=== PATIENT | male | born 1935 | race Caucasian/White ===

== ENCOUNTER → 2016-07-03 | Outpatient (CLI) | payer OTHER ==
[~2016-07-03] MED LIST: IOPAMIDOL (ISOVUE-300) 100 ML BTL IV ONE
[2016-07-03 13:38] LABS: CREATININE 0.8 mg/dL (0.7-1.3); GLOMERULAR FILTRATION RATE > 60
--- NOTE | 2016-07-03 16:01 | CT ---
"CT Chest With Contrast 1347 hours Indication: Lung cancer diagnosed 13 years ago right upper lobe (C 34.11). Technique: Spiral images were obtained through the chest with the uneventful intravenous administr ation of 90 mL of Isovue-300. Images were reconstructed and reviewed in multiple planes. Dose reduc tion techniques were utilized. Comparison: Prior CT chest study from July 31, 2011. Findings: Lung and large airways: There has been interval development of a spiculated solid mass posterior aspe ct left upper lobe adjacent to the major fissure on series 3 image 108 measuring 20 x 15 mm. There is a stable nodule associated with some scarring right lung base laterally on image 175 measuring 7 x 4 mm. No significant new pulmonary nodules are seen elsewhere within the lung parenchyma there are mckenna e emphysematous changes suspected involving the upper lobes. Minimal focal reticulonodular thickening is seen in the inferior aspect left upper lobe anteriorly could be from previous radiation therapy. Bronchi: No significant bronchial wall thickening Pleura: Normal. Vessels: Atherosclerotic calcification is noted of the thoracic aorta at the aortic arch level with s ome scattered areas of partially calcified plaque involving the descending thoracic aorta. Calcified plaque is also seen involving the right and left coronary arteries.. Heart and pericardium: Normal. Mediastinum and thuy: Increased number of small nodes are present within the prevascular space as wel l as AP window and precarinal region that were present previously and are stable. There is also a 21 mm node right perihilar location that is stable. Small 1 cm nodes are also seen about the left hilum were also present previously and appear to be stable. Chest wall and lower neck: Normal. Limited upper abdomen: There is stable peripherally enhancing hemangioma right lobe liver posterior s egment measuring about 5.3 x 6.1 cm transversely. There is mild increase in size of hypodense lesion upper pole right kidney that now measures 18 x 18 mm (previously 8 mm) nodularity of the left adrenal gland is stable measuring about 17 x 15 mm.. Skeletal system: Vertebral body heights are well-maintained. There are no lytic or sclerotic osseous lesions. Impression: 1. Development of a spiculated solid mass posterior aspect left upper lobe adjacent to the major fiss ures suspicious for recurrent bronchogenic carcinoma. 2. Emphysematous changes suspected involving the upper lobes. 3. Increased number of small lymph nodes about the mediastinum and thuy bilaterally that are stable w hen compared to the prior study. 4. Stable hemangioma right lobe liver posterior segment. 5. Increase in size of hypodense lesion upper pole right kidney. This is nonspecific. Continued follo w-up suggested. 6. Stable nodularity left adrenal gland probably representing lipid poor adrenal adenoma. A Follow-Up Required test result has been communicated via the [place] | Critical Result syst em on 07/03/2016 15:59, Message ID [id number]."
== END ==
LOC: FIMAGING 12:51
PROVIDERS: ATTEND Surgery
DX: R91.8 Other nonspecific abnormal finding of lung field (principal); C34.11 Malignant neoplasm of upper lobe, right bronchus or lung
CPT/HCPCS: 71260; Q9967

== ENCOUNTER 2016-08-05 06:12 | Inpatient (IN) | payer OTHER ==
[~2016-08-05 06:12] MED LIST changes: -IOPAMIDOL (ISOVUE-300) 100 ML BTL IV ONE; +ceFAZolin 2 GM/DEXTROSE 100 ML IV ONE
[2016-08-05] MEDS ORDERED: LIDOCAINE 1% 5 ML SDV ONE (06:22)
--- NOTE | 2016-08-05 06:49 | CPEKG ---
Heart Rate: 86 RR Interval: 698 P-R Interval: 216 QRSD Interval: 164 QT Interval: 416 QTC Interval: 498 P [place]: 50 QRS [place]: 129 T Wave [place]: -10 EKG Severity - ABNORMAL ECG - EKG Impression: SINUS RHYTHM EKG Impression: VENTRICULAR TRIGEMINY EKG Impression: RBBB AND LPFB Electronically Signed By: Joanne Kraus 05-Aug-2016 09:02:35
[2016-08-05] MEDS ORDERED: BUPIVACAINE 0.5% 30 ML SDV ONE (07:11)
[2016-08-05 07:23] LABS: % IMMATURE GRANULYOCYTES 0.3 % (0.0-1.1); ABSOLUTE IMMATURE GRANULOCYTES 0.04 10^3/uL (0.00-0.10); ADD DIFF? NO; ADD MORPH? NO; ADD SCAN? NO; ATYPICAL LYMPHOCYTE FLAG 0 (0-99); FRAGMENT RBC FLAG 0 (0-99); HEMOGLOBIN 16.2 g/dL (13.7-17.5); LEFT SHIFT FLG 0 (0-99); LIPEMIA HEMOLYSIS FLAG 90 (0-99); MEAN CELL HEMOGLOBIN 28.6 pg (27.9-34.1); MEAN CELL HEMOGLOBIN CONCENTR. 34.5 g/dL (32.4-36.7); MEAN CELL VOLUME 82.9 fL (81.5-99.8); MEAN PLATELET VOLUME 9.1 fL (8.7-11.7); PLATELET CLUMPS FLAG 0 (0-99); PLATELET COUNT 278 10^3/uL (150-400); RED BLOOD CELL COUNT 5.67 10^6/uL (4.40-6.38); RED CELL DISTRIBUTION WIDTH 14.1 % (11.5-15.2)
[2016-08-05] MEDS ORDERED: LIDOCAINE 1% 5 ML SDV ID PRN (07:30)
[2016-08-05] MEDS ORDERED: LR 1,000 ML IV ONE (07:30)
[2016-08-05 07:36] LABS: ANION GAP 15 mEq/L (8-16); CALCIUM 10.3 mg/dL (8.5-10.4); CARBON DIOXIDE 23 mEq/l (22-31); CHLORIDE 100 mEq/L (97-110); CREATININE 1.1 mg/dL (0.7-1.3); GLOMERULAR FILTRATION RATE > 60; GLUCOSE 143 mg/dL (70-100); POTASSIUM 3.6 mEq/L (3.5-5.2); SODIUM 138 mEq/L (134-144)
[2016-08-05] MEDS ORDERED: NON-FORMULARY NEW DRUG (Losartan Potassium [Cozaar] 100 MG) PO SCH (09:00)
[2016-08-05] MEDS ORDERED: [UNRECOGNIZED DRUG - OTHER] PO SCH (09:00)
[2016-08-05] MEDS ORDERED: NON-FORMULARY NEW DRUG (Atenolol/Chlorthalidone [Atenolol-Chlorthalidone 50-25] 1 EACH) PO SCH (09:00)
--- NOTE | 2016-08-05 10:10 | GCON ---
CARDIOLOGY CONSULTATION DATE OF CONSULTATION: 08/05/2016 REFERRING PHYSICIAN: Cory Hardin MD INDICATIONS: Abnormal EKG, preoperative evaluation. HISTORY OF PRESENT ILLNESS: The patient is a pleasant 81-year-old male seen in the [facility] area prior to planned lung surgery. He has no known cardiovascular disease. His cardiac risk factor profile in addition to his age and gender includes an extensive and heavy tobacco use history , longstanding hypertension, and a history of untreated hyperlipidemia. He is currently awaiting irma ng surgery. Apparently, 13 years ago he had a right upper lobectomy for lung cancer. Apparently, shawn honeycutt has a new spiculated mass. There are plans for him to undergo pulmonary surgery in order to remov e this mass. He states that he generally feels well, although he is nearly completely sedentary. Shawn honeycutt does not participate in any exercise program. The most strenuous activity he does is to go for a casual walk with his dog. He does not climb stairs. He denies symptoms of dyspnea or chest discomf ort. As an outpatient, he takes Cozaar and atenolol/chlorthalidone for blood pressure control. Thi s morning, he took his Cozaar without the atenolol. 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 This ECG was similar to a previous ECG available for review; however, the d ate on that ECG is illegible. His blood pressure today was in excess of 200 mmHg. PAST MEDICAL HISTORY: 1. Lung cancer, as described above. 2. Hypertension. 3. Hyperlipidemia. 4. Macular degeneration. 5. Possible peripheral neuropathy. 6. Bilateral hearing loss. 7. Chronic sinusitis. MEDICATIONS: 1. Cozaar 100 mg daily. 2. Atenolol/chlorthalidone 50/25 mg daily. 3. Ocuvite. FAMILY HISTORY: Negative. SOCIAL HISTORY: He used to be a heavy smoker, in excess of 2 packs a day for a very long time. He quit 13 years ago when he was diagnosed with lung cancer. 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 He is currently to his 2nd of 39 years. He is retired. He has 1 child. 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 He is a [employer]. As stated above, he d oes not exercise, does have a small dog that he walks although does not do any stairs. SURGICAL HISTORY: Previous right upper lobe resection, tonsillectomy, adenoidectomy, left cataract surgery. ALLERGIES: None. PHYSICAL EXAMINATION: VITAL SIGNS: His blood pressure was noted to be most recently 189/90. His h eart rate is in the 60s and 70s. He is afebrile. He has no oxygen required. GENERAL: He is a hea lthy white male in no acute distress. HEENT: No jugular venous distention, adenopathy, thyromegaly , or bruits. RESPIRATORY: He speaks in full sentences, using no accessory muscles. On auscultatio n, he has clear lung solorio bilaterally. CARDIAC: Precordial inspection is unremarkable. PMI is n ondisplaced. On auscultation, he has a regular rate and rhythm. There is a soft 4th heart sound wi th a soft 1/6 systolic ejection murmur at the left sternal border. ABDOMEN: Soft and nontender wit h no masses. I do not appreciate his aorta. EXTREMITIES: Without edema and are warm and well perf used. He has 2+ dorsal pedal pulses. NEUROLOGIC: He is alert and oriented with a pleasant mood an d affect. He moves all 4 limbs spontaneously. DATA REVIEWED: Electrocardiogram is as described above. White blood cell count 11.7, hematocrit 47, platelet count 278,000. Sodium 138, potassium 3.6, chlo ride 100, BUN 27, creatinine 1.1, glucose 143, calcium 10.3. IMPRESSION: The patient is a pleasant 81-year-old male with no known cardiovascular disease, howeve r, a fairly significant cardiac risk factor profile. He is seen prior to planned lung resection for what appears to be recurrent lung cancer. Today, he is markedly hypertensive. His blood pressure is elevated on the heels of not taking his morning atenolol/chlorthalidone. 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 His functional capacity is much less than 4 METS on a daily basis. The planned surgical procedure does not carry a low risk. RECOMMENDATIONS: 1. I think his surgery should be canceled for today. 2. I did ask him to take his atenolol/chlorthalidone. He has already taken his Cozaar. 3. I would recommend that he have an echocardiogram and stress myocardial perfusion imaging study p rior to any planned surgical procedure. 4. This plan was discussed with him and his . They are in agreement. 5. Dr. Hardin has recommended the patient be admitted to the hospital. We will plan to proceed with these tests during this hospitalization. /[id number]/MODL
[2016-08-05] MEDS ORDERED: REGADENOSON 0.4 MG/5 ML SYR IVP ONE (13:02)
--- NOTE | 2016-08-05 14:51 | CPR ---
DATE OF PROCEDURE: 08/05/2016 PROCEDURE: Lexiscan nuclear stress test. REASONS FOR TEST: 1. Abnormal EKG. 2. Hypertension. FINDINGS: Resting EKG shows a sinus rhythm with a heart rate of 69, first-degree AV block, right bu ndle branch block. Resting blood pressure 160/82, oxygen saturation 94%. LEXISCAN PORTION: Lexiscan was injected rapidly, followed by saline flush. Cardiolite was then inj ected, followed by saline flush, both by protocol. Lexiscan injected at 1:35 p.m. Test peak blood pressure 172/80, peak heart rate 83, oxygen saturation 96%. He did become flushed and short of gabbie th with the injection. RECOVERY: Caffeine was given with good response of resolving shortness of breath and flushing. Res ting blood pressure 174/80, resting heart rate 75, oxygen saturation 96%. There were no EKG changes throughout the testing process. At this time, he currently is stable for nuclear imaging. /[id number]/MODL
--- NOTE | 2016-08-05 15:25 | ECHO ---
[id number] + + [address] : : [place] [address] : : [phone] + + Adult Echocardiographic Report + ---------+ :Name: STEFANO CRUZ LStudy Date: 08/05/2016 10:11 AM : : Hospital Admission Number: [id number] Raadmarleni tinatalie: 207: :: 1935 Gender: Male Height: 72 i n : :Age: 81 yrs Race: WH Weight: 193 lb : :Reason For Study: Eval LV Fx : : BSA: 2.1 met ers2 : :History: Abnormal EKG : + ---------+ MMode/2D Measurements \T\ Calculations IVSd: 0.95 cm LVIDd: 4.5 cm FS: 42.4 % Ao root diam: 3.3 cm LVPWd: 0.97 cm LVIDs: 2.6 cm EDV(Teich): 94.3 ml ACS: 1.7 cm ESV(Teich): 25.0 ml EF(Teich): 73.5 % Normal Measurement Values: + + :LVIDd (3.5-5.7cm) IVSd (0.6-1.1cm) LVPWd (0.6-1.1cm) Aortic Root (2.0-3.7cm)Left Atrium (1.5-4.0cm): :LV Vol(d) (76-115ml) LV Vol(s) (29-48ml) Ejec Fraction (50-65%)PV Ej (0.6- 1.2m/s) TV Ej (0.4-1.0m/s) : :MV E Ej (0.8-1.0m/s)MV A Ej (0.3-1.0m/s)LVOT Ej (0.7-1.2m/s) Asc Ao Ej ( 0.9-1.8m/s) : + + Doppler Measurements \T\ Calculations MV E max ej: Ao V2 max: LV V1 max: PA V2 max: 45.4 cm/sec 149.3 cm/sec 100.7 cm/sec 97.7 cm/sec MV A max ej: Ao max P.9 mmHgLV V1 max PG: PA max P.2 cm/sec 4.1 mmHg 3.8 mmHg MV E/A: 0.47 Left Ventricle The left ventricle is normal in size. There is normal left ventricular wall thickness. The left ventricular ejection fraction is normal. Ejection Fraction = 73%. There is Doppler evidence for diastolic dysfunction. RBBB. Right Ventricle The right ventricle is normal in size and function. Atria The left atrial size is normal. Right atrial size is normal. Mitral Valve There is mild mitral annular calcification. There is no evidence of mitral valve prolapse. There is no mitral valve stenosis. There is trace mitral regurgitation. Tricuspid Valve The tricuspid valve is normal in structure and function. Aortic Valve Mild Aortic Valve Calcification. The aortic valve is trileaflet. There is no aortic stenosis. There is no aortic insufficiency. Pulmonic Valve The pulmonic valve is normal in structure and function. There is no pulmonic valvular regurgitation. Great Vessels The aortic root is normal size. Pericardium/Pleural There is no pericardial effusion. Conclusion A complete two-dimensional transthoracic echocardiogram was performed (2D, M-mode, Doppler and color flow Doppler). The left ventricular ejection fraction is normal. Ejection Fraction = 73%. There is Doppler evidence for diastolic dysfunction. The right ventricle is normal in size and function. There is mild mitral annular calcification. There is trace mitral regurgitation. The tricuspid valve is normal in structure and function. Mild Aortic Valve Calcification The aortic valve is trileaflet. There is no pericardial effusion. Final Reading Physician: Lima Chung signed on 08/05/2016 03:24 PM Ordering Physician: Tanvir Haywood Performed By: Manuel Brower, REYCS
[2016-08-05] MEDS ORDERED: hydrALAZINE 20 MG/ML VIAL IVP PRN (16:42)
[2016-08-05] MEDS: CARVEDILOL 25 MG TAB PO SCH (17:29)
--- NOTE | 2016-08-05 20:11 | SOAPPROG ---
[facility] Progress Note Assessment/Plan: Assessment: CARDIAC W/U OK/ PROBABLY CAN PROCEED WITH LUNG RESECTION WHEN BP BETTER CONTROLLED Plan: LEFT UPPER LOBECTOMY 08/05/16 20:09 Objective: Vital Signs Temp Pulse Resp BP Pulse Ox 36.6 C 61 18 179/90 H 95 08/05/16 20:00 08/05/16 20:00 08/05/16 20:00 08/05/16 20:00 08/05/16 20:00 Laboratory Results 08/05/16 07:15 08/05/16 07:15 08/04/16 08/05/16 08/06/16 05:59 05:59 05:59 Intake Total 650 Output Total 250 Balance 400 ICD10 Worksheet Patient Problems: Problems Problem Status Onset Lung cancer, lingula Acute - ICD10 Problem Qualifiers (1) Lung cancer, lingula
[2016-08-06] MEDS: LOSARTAN POTASSIUM 50 MG TAB PO SCH (08:04)
[2016-08-06] MEDS: PRESERVISION AREDS2 FORMULA EYE VIT 1 EACH PO SCH (08:04)
[2016-08-06] MEDS: CARVEDILOL 25 MG TAB PO SCH ×2 (08:05→17:58)
--- NOTE | 2016-08-06 08:55 | CPEKG ---
Heart Rate: 84 RR Interval: 714 P-R Interval: 220 QRSD Interval: 160 QT Interval: 424 QTC Interval: 502 P [place]: 77 QRS [place]: 123 T Wave [place]: -1 EKG Severity - ABNORMAL ECG - EKG Impression: SINUS RHYTHM EKG Impression: VENTRICULAR PREMATURE COMPLEX EKG Impression: FIRST DEGREE AV BLOCK EKG Impression: RIGHT BUNDLE BRANCH BLOCK Electronically Signed By: Joanne Kraus 06-Aug-2016 09:17:14
[2016-08-06] MEDS ORDERED: ATENOLOL 50 MG TAB PO SCH (09:00)
[2016-08-06] MEDS: CHLORTHALIDONE 25 MG TAB PO SCH ×2 (10:45→11:24)
--- NOTE | 2016-08-06 13:03 | SOAPPROG ---
[facility] Progress Note Assessment/Plan: Assessment: Of his workup thus far indicates that he has a structurally normal heart with evidence of underlying coronary disease as manifested by a fixed inferolateral perfusion defect. He is not experiencing any angina or heart failure. 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 He has significant hypertension which, at the present time, is not optimally treated. Overall, I think his current cardiovascular risk is such that he can safely be taken to the operating room for his planned partial pneumonectomy. I did ask them to give him his hydralazine this morning to help with his blood pressure. I have also written for him to be started on amlodipine. Postoperatively I would like him to start low-dose aspirin. We can consider other treatment options as an outpatient. 08/06/16 13:01 Subjective: Today, he states that he is feeling well. He notes he is a little bit fatigued and hungry from being NPO. He has not experienced any chest discomfort, chest pain, chest pressure heaviness or dyspnea. He is currently NPO with plans for surgery later today. Objective: Vital Signs Temp Pulse Resp BP Pulse Ox 36.9 C 82 16 154/77 H 95 08/06/16 11:59 08/06/16 11:59 08/06/16 11:59 08/06/16 11:59 08/06/16 11:59 Laboratory Results 08/05/16 07:15 08/05/16 07:15 08/05/16 08/06/16 08/07/16 05:59 05:59 05:59 Intake Total 1050 Output Total 250 Balance 800 Physical Exam - Physical Exam General Appearance: WD/WN, no apparent distress Neck: non-tender Respiratory: lungs clear Cardiac/Chest: regular rate, rhythm Peripheral Pulses: 2+: carotid (R), carotid (L) Neuro/Psych: no motor/sensory deficits, alert, normal mood/affect, oriented x 3 ICD10 Worksheet Patient Problems: Problems Problem Status Onset Lung cancer, lingula Acute
[2016-08-07] MEDS ORDERED: HYDROmorphONE/DILAUDID 1 MG/ML SYR IVP PRN (04:35)
[2016-08-07] MEDS ORDERED: ONDANSETRON 4 MG/2 ML VIAL IVP PRN (04:35)
[2016-08-07 05:14] LABS: % IMMATURE GRANULYOCYTES 0.3 % (0.0-1.1); ABSOLUTE IMMATURE GRANULOCYTES 0.05 10^3/uL (0.00-0.10); ADD DIFF? NO; ADD MORPH? NO; ADD SCAN? NO; ATYPICAL LYMPHOCYTE FLAG 10 (0-99); FRAGMENT RBC FLAG 0 (0-99); HEMATOCRIT 42.7 % (40.0-51.0); HEMOGLOBIN 14.7 g/dL (13.7-17.5); LEFT SHIFT FLG 0 (0-99); LIPEMIA HEMOLYSIS FLAG 90 (0-99); MEAN CELL HEMOGLOBIN 28.8 pg (27.9-34.1); MEAN CELL HEMOGLOBIN CONCENTR. 34.4 g/dL (32.4-36.7); MEAN CELL VOLUME 83.7 fL (81.5-99.8); MEAN PLATELET VOLUME 9.7 fL (8.7-11.7); PLATELET CLUMPS FLAG 0 (0-99); PLATELET COUNT 290 10^3/uL (150-400); RED CELL DISTRIBUTION WIDTH 14.2 % (11.5-15.2)
[2016-08-07 05:27] LABS: ANION GAP 12 mEq/L (8-16); CALCIUM 9.7 mg/dL (8.5-10.4); CARBON DIOXIDE 21 mEq/l (22-31); CHLORIDE 95 mEq/L (97-110); CREATININE 1.1 mg/dL (0.7-1.3); GLOMERULAR FILTRATION RATE > 60; GLUCOSE 104 mg/dL (70-100); POTASSIUM 3.8 mEq/L (3.5-5.2); SODIUM 128 mEq/L (134-144)
[2016-08-07] MEDS ORDERED: BUPIVACAINE/EPI 0.5% 30 ML SDV ONE ×2 (07:39→15:36)
[2016-08-07] MEDS ORDERED: THROMBIN(HUM PLAS)/FIBRINOG/CA 5 ML VIAL TP ONE (07:40)
[2016-08-07] MEDS ORDERED: BUPIVACAINE 0.5% 30 ML SDV ONE ×2 (07:40→15:37)
[2016-08-07] MEDS ORDERED: CEFOXITIN SODIUM IV ONE (08:30)
[2016-08-07] MEDS ORDERED: D5W IV ONE (08:30)
[2016-08-07] MEDS: LOSARTAN POTASSIUM 50 MG TAB PO SCH (08:46)
[2016-08-07] MEDS: CARVEDILOL 25 MG TAB PO SCH ×2 (08:49→21:41)
[2016-08-07] MEDS: PRESERVISION AREDS2 FORMULA EYE VIT 1 EACH PO SCH (08:49)
[2016-08-07 09:26] LABS: ANION GAP 15 mEq/L (8-16); CARBON DIOXIDE 17 mEq/l (22-31); CHLORIDE 97 mEq/L (97-110); GLOMERULAR FILTRATION RATE > 60; GLUCOSE 142 mg/dL (70-100); POTASSIUM 3.9 mEq/L (3.5-5.2); SODIUM 129 mEq/L (134-144)
[2016-08-07] MEDS: CHLORTHALIDONE 25 MG TAB PO SCH (10:52)
--- NOTE | 2016-08-07 12:01 | SOAPPROG ---
[facility] Progress Note Assessment/Plan: Assessment: 08/06/16 His workup thus far indicates that he has a structurally normal heart with evidence of underlying coronary disease as manifested by a fixed inferolateral perfusion defect. He is not experiencing any angina or heart failure. 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 He has significant hypertension which, at the present time, is not optimally treated. Overall, I think his current cardiovascular risk is such that he can safely be taken to the operating room for his planned partial pneumonectomy. I did ask them to give him his hydralazine this morning to help with his blood pressure. I have also written for him to be started on amlodipine. Postoperatively I would like him to start low-dose aspirin. We can consider other treatment options as an outpatient. 08/07/16 12:00 1. Probable coronary artery disease. His stress test indicates a fixed inferolateral defect. He has no symptoms of angina. There was no ischemia noted. 2. Hypertension. Blood pressure has improved following advancing his medical therapy. 3. Abnormal ECG. He has a right bundle branch block, left posterior fascicular block and first-degree AV block. 4. Frequent PVCs. 5. Hyponatremia. He remains stable. His blood pressure has improved. I am a little concerned about his low sodium. I wonder if this might be related to prolonged periods of NPO status or the cessation of his chlorthalidone. I think it is likely that he will equilibrate following his surgical procedure. At the present time , I think that he can have his surgery safely with respect to his cardiovascular status. Will need to carefully follow his electrolytes postoperatively. 08/07/16 12:02 Subjective: His surgical procedure was canceled yesterday. He remains hemodynamically stable. Blood pressure has improved. He complains of mild nausea and had emesis this morning. He is not experiencing any chest or abdominal discomfort. Objective: Vital Signs Temp Pulse Resp BP Pulse Ox 36.9 C 81 25 H 136/67 H 90 L 08/07/16 11:47 08/07/16 11:47 08/07/16 11:47 08/07/16 11:47 08/07/16 11:47 Laboratory Results 08/07/16 03:53 08/07/16 09:00 08/06/16 08/07/16 08/08/16 05:59 05:59 05:59 Intake Total 1050 1300 Output Total 250 Balance 800 1300 Physical Exam - Physical Exam General Appearance: WD/WN, no apparent distress Neck: non-tender, full range of motion Respiratory: chest non-tender, lungs clear, normal breath sounds, No respiratory distress, No accessory muscle use Cardiac/Chest: normal peripheral pulses, regular rate, rhythm, No edema, No gallop, No JVD Peripheral Pulses: 2+: carotid (R), carotid (L) Abdomen: non-tender, soft Neuro/Psych: alert, normal mood/affect, oriented x 3 ICD10 Worksheet Patient Problems: Problems Problem Status Onset Lung cancer, lingula Acute
[2016-08-07] MEDS ORDERED: MIDAZOLAM 2 MG/2 ML VIAL ONE (15:27)
[2016-08-07] MEDS ORDERED: fentaNYL 100 MCG/2 ML INJ ONE ×3 (15:31→18:17)
[2016-08-07] MEDS ORDERED: REMIFENTANIL HCL 1 MG VIAL ONE (15:31)
[2016-08-07] MEDS ORDERED: PROPOFOL/EMULSION 500 MG/50 ML BOTTLE IV ONE (15:31)
[2016-08-07] MEDS ORDERED: ROCURONIUM 50 MG/5 ML VIAL ONE (15:35)
[2016-08-07] MEDS ORDERED: ONDANSETRON 4 MG/2 ML VIAL ONE (15:35)
[2016-08-07] MEDS ORDERED: DEXAMETHASONE 4 MG/ML VIAL ONE (15:37)
[2016-08-07] MEDS ORDERED: LIDOCAINE 2% 5 ML SDV ONE (15:44)
[2016-08-07] MEDS ORDERED: PROPOFOL 200 MG/20 ML VIAL ONE (15:45)
[2016-08-07] MEDS ORDERED: PHENYLEPHRINE HCL 100 MCG/ML SYR ONE ×2 (15:50→16:41)
[2016-08-07] MEDS ORDERED: THROMBIN (RECOMBINANT) 20,000 UNIT SPRAY TP ONE (17:37)
[2016-08-07] MEDS ORDERED: KETOROLAC 30 MG/1 ML SDV ONE (17:53)
--- NOTE | 2016-08-07 18:11 | POSTOPPROG ---
Post Op Note Date of Operation: 08/07/16 Surgeon: Cory Hardin Lock Tender: Victor M Weinstein MD, Felipe Gonzalez MS Anesthesiologist: Jhoan Fitzpatrick Anesthesia: GET(General Endotracheal) Pre-op Diagnosis: left lung mass Post-op Diagnosis: same Indication: left lung mass Procedure: vats, left upper lobectomy partial Findings: 3 cm puckered lesion left upper lobe superior segments Inf/Abcess present in the surg proc area at time of surgery?: No EBL: 100-500 Complications: none Drains: Constavac (left upper lobe superior segments)
[2016-08-07] MEDS: cefOXitin SODIUM 1 GM in D5W 50 ML IV SCH ×2 (18:20→20:30)
[2016-08-07] MEDS ORDERED: D5W 1/2 NS 1,000 ML IV SCH (23:30)
[2016-08-07] MEDS: HYDROCODONE/APAP 5/325 TAB PO PRN (23:40)
--- NOTE | 2016-08-07 23:49 | SOAPPROG ---
SOAP Progress Note Assessment/Plan: Assessment: CARDIAC W/U OK/ PROBABLY CAN PROCEED WITH LUNG RESECTION WHEN BP BETTER CONTROLLED Plan: LEFT UPPER LOBECTOMY 08/05/16 20:09 08/07/16 23:48 POSTOP DOING WELL/ AFEBRILE/ WOUNDS OK/ NO AIR LEAK/ MINIMAL DRAINAGE/ PATH SQUAMOUS CELL CA Objective: Vital Signs Temp Pulse Resp BP Pulse Ox 37.9 C 81 17 104/55 L 96 08/07/16 19:45 08/07/16 23:00 08/07/16 23:00 08/07/16 23:00 08/07/16 23:00 Laboratory Results 08/07/16 03:53 08/07/16 09:00 08/06/16 08/07/16 08/08/16 05:59 05:59 05:59 Intake Total 1050 1300 1700 Output Total 250 350 Balance 800 1300 1350 ICD10 Worksheet Patient Problems: Problems Problem Status Onset Lung cancer, lingula Acute - ICD10 Problem Qualifiers (1) Lung cancer, lingula
[2016-08-08] MEDS: cefOXitin SODIUM 1 GM in D5W 50 ML IV SCH ×2 (01:13→05:43)
[2016-08-08] MEDS: HYDROCODONE/APAP 5/325 TAB PO PRN ×2 (05:42→16:15)
[2016-08-08 08:43] LABS: ANION GAP 12 mEq/L (8-16); CALCIUM 8.9 mg/dL (8.5-10.4); CARBON DIOXIDE 19 mEq/l (22-31); CHLORIDE 97 mEq/L (97-110); CREATININE 1.2 mg/dL (0.7-1.3); GLOMERULAR FILTRATION RATE 58; GLUCOSE 168 mg/dL (70-100); POTASSIUM 3.8 mEq/L (3.5-5.2); SODIUM 128 mEq/L (134-144)
[2016-08-08] MEDS: CARVEDILOL 25 MG TAB PO SCH ×2 (08:45→17:39)
[2016-08-08] MEDS: PRESERVISION AREDS2 FORMULA EYE VIT 1 EACH PO SCH (08:46)
[2016-08-08] MEDS: LOSARTAN POTASSIUM 50 MG TAB PO SCH (08:46)
[2016-08-08] MEDS: CHLORTHALIDONE 25 MG TAB PO SCH (08:46)
--- NOTE | 2016-08-08 13:20 | SOAPPROG ---
SOAP Progress Note Assessment/Plan: Assessment: 81yo male s/p left upper lobe partial lobectomy, squamous cell on initial path during surgery. Doing well, tolerating diet, pain well controlled, no issues, feel better than prior to surgery. PE in chair watching TV, alert Chest left chest tubes in place, small leak. CTA B/L Ht RRR CXR tiny PTX Chest tubes 320/24hrs small leak present, on suction Plan: ok to floor continue suction 08/08/16 13:17 Objective: Vital Signs Temp Pulse Resp BP Pulse Ox 36.7 C 95 24 H 142/71 H 97 08/08/16 08:00 08/08/16 08:00 08/08/16 08:00 08/08/16 08:00 08/08/16 08:00 Laboratory Results 08/08/16 07:20 08/08/16 07:20 08/07/16 08/08/16 08/09/16 05:59 05:59 05:59 Intake Total 1300 2200 Output Total 945 100 Balance 1300 1255 -100 ICD10 Worksheet Patient Problems: Problems Problem Status Onset Lung cancer, lingula Acute
--- NOTE | 2016-08-08 13:26 | SOAPPROG ---
[facility] Progress Note Assessment/Plan: Assessment: 08/06/16 His workup thus far indicates that he has a structurally normal heart with evidence of underlying coronary disease as manifested by a fixed inferolateral perfusion defect. He is not experiencing any angina or heart failure. 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 He has significant hypertension which, at the present time, is not optimally treated. Overall, I think his current cardiovascular risk is such that he can safely be taken to the operating room for his planned partial pneumonectomy. I did ask them to give him his hydralazine this morning to help with his blood pressure. I have also written for him to be started on amlodipine. Postoperatively I would like him to start low-dose aspirin. We can consider other treatment options as an outpatient. 08/07/16 12:00 1. Probable coronary artery disease. His stress test indicates a fixed inferolateral defect. He has no symptoms of angina. There was no ischemia noted. 2. Hypertension. Blood pressure has improved following advancing his medical therapy. 3. Abnormal ECG. He has a right bundle branch block, left posterior fascicular block and first-degree AV block. 4. Frequent PVCs. 5. Hyponatremia. 08/08/2016: He appears to be doing very well at the present time. His blood pressures have improved and remain under reasonable control. Would recommend continuation of his current antihypertensive regimen. At this point, I will sign off. I would like him to see me in the office in the next 2-4 weeks. 08/08/16 13:25 Subjective: The patient underwent a video-assisted thoracoscopic left upper lobectomy yesterday. He did well. Today he has very minimal pain. He has been hemodynamically stable with significantly improved blood pressures. Objective: Vital Signs Temp Pulse Resp BP Pulse Ox 36.7 C 95 24 H 142/71 H 97 08/08/16 08:00 08/08/16 08:00 08/08/16 08:00 08/08/16 08:00 08/08/16 08:00 Laboratory Results 08/08/16 07:20 08/08/16 07:20 08/07/16 08/08/16 08/09/16 05:59 05:59 05:59 Intake Total 1300 2200 Output Total 945 100 Balance 1300 1255 -100 Physical Exam - Physical Exam General Appearance: WD/WN, no apparent distress Neck: non-tender Respiratory: lungs clear (anteror) Cardiac/Chest: regular rate, rhythm Peripheral Pulses: 2+: carotid (R), carotid (L) ICD10 Worksheet Patient Problems: Problems Problem Status Onset Lung cancer, lingula Acute
[2016-08-09] MEDS: HYDROCODONE/APAP 5/325 TAB PO PRN ×3 (03:57→23:15)
[2016-08-09 06:32] LABS: % IMMATURE GRANULYOCYTES 0.3 % (0.0-1.1); ABSOLUTE IMMATURE GRANULOCYTES 0.04 10^3/uL (0.00-0.10); ADD DIFF? NO; ADD MORPH? NO; ADD SCAN? NO; ATYPICAL LYMPHOCYTE FLAG 0 (0-99); FRAGMENT RBC FLAG 0 (0-99); HEMATOCRIT 36.6 % (40.0-51.0); HEMOGLOBIN 12.8 g/dL (13.7-17.5); LEFT SHIFT FLG 0 (0-99); LIPEMIA HEMOLYSIS FLAG 90 (0-99); MEAN CELL HEMOGLOBIN 29.2 pg (27.9-34.1); MEAN CELL VOLUME 83.6 fL (81.5-99.8); MEAN PLATELET VOLUME 9.2 fL (8.7-11.7); PLATELET CLUMPS FLAG 10 (0-99); PLATELET COUNT 246 10^3/uL (150-400); RED BLOOD CELL COUNT 4.38 10^6/uL (4.40-6.38); RED CELL DISTRIBUTION WIDTH 14.2 % (11.5-15.2)
[2016-08-09 06:48] LABS: ANION GAP 9 mEq/L (8-16); CALCIUM 8.7 mg/dL (8.5-10.4); CARBON DIOXIDE 23 mEq/l (22-31); CHLORIDE 97 mEq/L (97-110); CREATININE 1.1 mg/dL (0.7-1.3); GLOMERULAR FILTRATION RATE > 60; GLUCOSE 114 mg/dL (70-100); POTASSIUM 3.1 mEq/L (3.5-5.2); SODIUM 129 mEq/L (134-144)
--- NOTE | 2016-08-09 07:34 | SOAPPROG ---
SOAP Progress Note Assessment/Plan: Assessment: CARDIAC W/U OK/ PROBABLY CAN PROCEED WITH LUNG RESECTION WHEN BP BETTER CONTROLLED Plan: LEFT UPPER LOBECTOMY 08/05/16 20:09 08/07/16 23:48 POSTOP DOING WELL/ AFEBRILE/ WOUNDS OK/ NO AIR LEAK/ MINIMAL DRAINAGE/ PATH SQUAMOUS CELL CA 08/09/16 07:31 afebrile/ wounds ok/ no airleak/ drainage down/ path pending/ uo good/ labs pending co some incisional pain/ hopefully tubes out in am Objective: Vital Signs Temp Pulse Resp BP Pulse Ox 36.7 C 64 16 135/70 H 96 08/08/16 23:35 08/08/16 23:35 08/08/16 23:35 08/08/16 23:35 08/08/16 23:35 Laboratory Results 08/09/16 06:20 08/09/16 06:20 08/08/16 08/09/16 08/10/16 05:59 05:59 06:59 Intake Total 2200 Output Total 945 1415 Balance 1255 -1415 ICD10 Worksheet Patient Problems: Problems Problem Status Onset Lung cancer, lingula Acute - ICD10 Problem Qualifiers (1) Lung cancer, lingula
[2016-08-09] MEDS: CARVEDILOL 25 MG TAB PO SCH ×2 (08:33→17:44)
[2016-08-09] MEDS: PRESERVISION AREDS2 FORMULA EYE VIT 1 EACH PO SCH (08:33)
[2016-08-09] MEDS: LOSARTAN POTASSIUM 50 MG TAB PO SCH (08:33)
[2016-08-09] MEDS: CHLORTHALIDONE 25 MG TAB PO SCH (09:06)
[2016-08-09] MEDS ORDERED: NS 500 ML IV ONE (11:00)
[2016-08-10] MEDS: LOSARTAN POTASSIUM 50 MG TAB PO SCH (08:35)
[2016-08-10] MEDS: CARVEDILOL 25 MG TAB PO SCH ×2 (08:35→17:46)
[2016-08-10] MEDS: PRESERVISION AREDS2 FORMULA EYE VIT 1 EACH PO SCH (08:35)
[2016-08-10] MEDS: CHLORTHALIDONE 25 MG TAB PO SCH (08:36)
--- NOTE | 2016-08-10 09:44 | SOAPPROG ---
SOAP Progress Note Assessment/Plan: Assessment/Plan: 81 Y M s/p VATS c lobectomy, POD#3. No air leak. Drainage down (110cc/24 hr per markings on pleurovac). D/w'ed Dr. Hardin and will pull chest tubes. CXR later today. Possibly d/c tomorrow. No further presyncopal episodes. BP ok. S: Not much pain. Slept fine. Eating. O: alert, nad hard of hearing ctab rrr wounds well dressed 08/10/16 09:42 Objective: Vital Signs Temp Pulse Resp BP Pulse Ox 36.6 C 61 16 161/67 H 91 L 08/10/16 07:51 08/10/16 08:35 08/10/16 07:51 08/10/16 08:36 08/10/16 07:51 Laboratory Results 08/09/16 06:20 08/09/16 06:20 08/09/16 08/10/16 08/11/16 04:59 05:59 05:59 Intake Total Output Total Balance ICD10 Worksheet Patient Problems: Problems Problem Status Onset Lung cancer, lingula Acute
[2016-08-10] MEDS: HYDROCODONE/APAP 5/325 TAB PO PRN ×2 (10:12→20:38)
[2016-08-10] MEDS ORDERED: MAGNESIUM HYDROXIDE 30 ML UDCUP PO PRN (15:43)
[2016-08-10] MEDS ORDERED: BISACODYL 10 MG SUPP PR PRN (15:43)
[2016-08-10] MEDS ORDERED: POLYETHYLENE GLYCOL 3350 17 GM PKT PO PRN (15:43)
[2016-08-10] MEDS ORDERED: LACTULOSE 20 GM/30 ML UDCUP PO PRN (15:43)
[2016-08-10] MEDS: SENNOSIDES/DOCUSATE SODIUM TAB PO SCH ×2 (19:23→20:38)
--- NOTE | 2016-08-10 21:03 | GOP ---
[f rep st] OPERATIVE REPORT DATE OF OPERATION: 08/07/2016 SURGEON: Cory Hardin MD COMMERCIAL DRIVER: Victor M Weinstein MD ANESTHESIOLOGIST: Schuyler Fitzpatrick DO PREOPERATIVE DIAGNOSIS: Left upper lobe lung mass. POSTOPERATIVE DIAGNOSIS: Left lung cancer. PROCEDURE PERFORMED: Video-assisted thorascopic surgery/left upper lobe partial lobectomy. FINDINGS: The patient was found to have a 3 cm lesion in the superior aspect of the left upper lobe which was puckering the visceral pleura. There was no evidence of adenopathy or metastatic disease . INDICATIONS: The patient had previous lung cancer on the right side. Resected 12 years ago. He no w has a suspicious mass in the left upper lobe. He has insistent on only taking a portion of the le ft upper lobe if possible because he does somewhat to be short of breath and dependent on oxygen. DESCRIPTION OF PROCEDURE: The patient was taken to the operating room, where he received satisfacto ry general endotracheal anesthesia by Dr. Fitzpatrick. He was placed in the right lateral decubitus position after receiving a double-lumen endotracheal tube. Prepped and draped in the usual sterile fashion. A short incision was made in the 7th intercostal space in the midaxillary line. A thorac oscope was introduced. Three other trocars were placed in the upper chest and under direct vision. The greater fissure was exposed. The tumor was visualized. It appeared to be in the upper lobe eq uivalent on the left side, sparing the lingula from involvement. The fissure was developed. The ar milton to the lingula was spared. The arteries to the upper lobe section were dissected free and divi ded with staplers and the pleura over the upper lobe was incised circumferentially. The upper lobe vein was dissected free and divided with a stapler, leaving the portion to the lingula intact. The lung was then compressed with a Satinsky type clamp, creating an artificial fissure between the uppe r and lower lobe and the lingula. The lung parenchyma was then divided with a series of firings of EndoGIA staplers, creating a hemostatic, airtight division between the 2 lobes. It should be noted that prior to that the bronchus to the upper lobe section was also divided with an EndoGIA stapler a nd that demonstrated good residual filling of the lingula and the lower lobe. Following that, the p arenchyma was divided with a RAÚL stapler. A specimen was placed in a specimen bag and extracted thr ough one of the port sites which had been enlarged to approximately 2-1/2 inches. 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 The specimen did include so me lymph nodes in the intralobar lesion. There were no significant hilar nodes visualized. Two #28 chest tubes were brought in through 2 of the trocar sites, secured to the skin with silk sutures. The mini thoracotomy site was closed with a running 0 Vicryl suture for the muscular layers, 3-0 Dave ryl for the subcu, and a 4-0 Monocryl subcuticular stitch for the skin. All layers were infiltrated with 0.5% Marcaine. Chest tubes were connected to a Pleur-Evac drainage system. The wounds were d ressed. He tolerated the procedure well. He was taken to the recovery room in good condition. Blo od loss was less than 150 cc. There were no complications. /[id number]/MODL
[2016-08-11 07:57] VITALS: BP 143/73; RESP 14; TEMP 98.1
[2016-08-11] MEDS: CARVEDILOL 25 MG TAB PO SCH (08:20)
[2016-08-11] MEDS: SENNOSIDES/DOCUSATE SODIUM TAB PO SCH (08:20)
[2016-08-11] MEDS: LOSARTAN POTASSIUM 50 MG TAB PO SCH (08:21)
[2016-08-11] MEDS: CHLORTHALIDONE 25 MG TAB PO SCH (08:21)
[2016-08-11] MEDS: PRESERVISION AREDS2 FORMULA EYE VIT 1 EACH PO SCH (08:21)
[2016-08-11 08:22] VITALS: PULSE 66
[2016-08-11] MEDS: HYDROCODONE/APAP 5/325 TAB PO PRN (08:27)
--- NOTE | 2016-08-11 09:19 | GDS ---
[f rep st] DISCHARGE SUMMARY REASON FOR ADMISSION: Surgery for lung cancer. OTHER PERTINENT DIAGNOSES: 1. Hypertension. 2. Right bundle branch block. 3. Hyperlipidemia. 4. Peripheral neuropathy. 5. Hearing loss, chronic. 6. Sinusitis. HOSPITAL COURSE: Patient is a 81-year-old male who came to [facility] on 08/05/2016 to undergo surgery with Dr. Hardin for lung cancer. His surgery was canceled initially due to hypertension. He was evaluated by Cardiology and underwent a normal nuclear stress test, negative for ischemia. His hypertension medications were optimized. He underwent surgery on 08/07/2016 , a left VATS. Pathology from the surgery is still pending at the time of this dictation. Patient is being discharged today with hydrocodone for pain although he is not having much pain. He is on room air, he is ambulating well, and the patient and his feel he is at his baseline as far as mobility and mentation. DISCHARGE MEDICATIONS: He is going to be discharged on the same high blood pressure medications that he was on during his hospital course today: 1. Norvasc 2.5 mg 1 tablet by mouth once daily. 2. Coreg 12.5 mg 1 tablet by mouth twice daily. 3. Chlorthalidone 25 mg 1 tablet orally once daily. 4. Losartan 100 mg orally once daily. FOLLOWUP: The patient is instructed to follow up in our office in approximately 7 days, leave the dressing on for 2 more days before removing. I explained to the patient and his as well as wrote it out in the discharge summary. Also patient should have a chest x-ray prior to his appointment in 7- 10 days, and this will be put through [facility], and I explained to the patient on the day of his appointment he should go directly to the kiosk located near the emergency department. /[id number]/MODL Patient was also sent home with home oxygen and home PT. Patient to follow-up with Dr Haywood of cardiology in 2 weeks. FRANCY
--- NOTE | 2016-08-11 10:16 | PDIAF ---
- Diagnosis Diagnosis: s/p lung surgery Code Status: Full Code - Medication Management Discharge Medications: Medications to Continue on Transfer Atenolol/Chlorthalidone [Atenolol-Chlorthalidone 50-25] 1 each PO DAILY [Last Taken 08/04/16 07:00] Losartan Potassium [Cozaar] 100 mg PO DAILY 08/01/16 [Last Taken 08/05/16 05:00] C/E/Zn/Cu/OM3/DHA/EPA/LUT/ZEAX [Preservision Areds 2 Softgel] 1 each PO DAILY # 0 cap 08/11/16 [Last Taken Unknown] Carvedilol [Coreg (*)] 12.5 mg PO BIDMEAL #0 tab 08/11/16 [Last Taken Unknown] Chlorthalidone [Chlorthalidone 25 mg (*)] 25 mg PO DAILY #0 tab 08/11/16 [Last Taken Unknown] Hydrocodone/APAP 5/325 [[place] 5/325 (*)] 2 tab PO Q4HRS PRN #30 tab 08/11/16 [ Last Taken Unknown] Losartan Potassium [Cozaar 50 mg (*)] 100 mg PO DAILY #0 tab 08/11/16 [Last Taken Unknown] Sennosides/Docusate Sodium [Senokot-S] 1 - 2 tab PO BID #0 tab 08/11/16 [Last Taken Unknown] amLODIPine BESYLATE [Norvasc 2.5 mg (*)] 2.5 mg PO DAILY #0 tab 08/11/16 [Last Taken Unknown] hydrALAZINE [Apresoline 20 MG VIAL] 20 mg IVP Q6HRS PRN #0 vial 08/11/16 [Last Taken Unknown] Discharge Medications: Refer to the Discharge Home Medication list for PRN reason. - Orders Services needed: Physical Therapy Diet Recommendation: no restrictions on diet Diet Texture: Regular Texture Diet - Follow Up Care Current Providers and Referrals: MAHSA MCDANIELS [Primary Care Provider] - Cory Hardin MD [Medical Doctor] - (call for an appointment with the Elli Menendez or Wes, next week. Please tell the office thta you will need a chest xray before hand)
[2016-08-11 10:18] VITALS: O2SAT 86
--- NOTE | 2016-08-11 10:18 | PDIAF ---
- Diagnosis Diagnosis: s/p lung surgery Code Status: Full Code - Medication Management Discharge Medications: Medications to Continue on Transfer Atenolol/Chlorthalidone [Atenolol-Chlorthalidone 50-25] 1 each PO DAILY [Last Taken 08/04/16 07:00] Losartan Potassium [Cozaar] 100 mg PO DAILY 08/01/16 [Last Taken 08/05/16 05:00] C/E/Zn/Cu/OM3/DHA/EPA/LUT/ZEAX [Preservision Areds 2 Softgel] 1 each PO DAILY # 0 cap 08/11/16 [Last Taken Unknown] Carvedilol [Coreg (*)] 12.5 mg PO BIDMEAL #0 tab 08/11/16 [Last Taken Unknown] Chlorthalidone [Chlorthalidone 25 mg (*)] 25 mg PO DAILY #0 tab 08/11/16 [Last Taken Unknown] Hydrocodone/APAP 5/325 [[place] 5/325 (*)] 2 tab PO Q4HRS PRN #30 tab 08/11/16 [ Last Taken Unknown] Losartan Potassium [Cozaar 50 mg (*)] 100 mg PO DAILY #0 tab 08/11/16 [Last Taken Unknown] Sennosides/Docusate Sodium [Senokot-S] 1 - 2 tab PO BID #0 tab 08/11/16 [Last Taken Unknown] amLODIPine BESYLATE [Norvasc 2.5 mg (*)] 2.5 mg PO DAILY #0 tab 08/11/16 [Last Taken Unknown] hydrALAZINE [Apresoline 20 MG VIAL] 20 mg IVP Q6HRS PRN #0 vial 08/11/16 [Last Taken Unknown] Discharge Medications: Refer to the Discharge Home Medication list for PRN reason. - Orders Services needed: Physical Therapy Oxygen: Home oxygen Diet Recommendation: no restrictions on diet Diet Texture: Regular Texture Diet - Follow Up Care Current Providers and Referrals: MAHSA MCDANIELS [Primary Care Provider] - Cory Hardin MD [Medical Doctor] - (call for an appointment with the Elli Menendez or Wes, next week. Please tell the office thta you will need a chest xray before hand)
--- NOTE | 2016-08-11 10:20 | SOAPPROG ---
SOAP Progress Note Assessment/Plan: Assessment: 81yo male s/p left upper lobe partial lobectomy, squamous cell on initial path during surgery. Doing well, tolerating diet, pain well controlled, no issues, feel better than prior to surgery. PE in chair watching TV, alert Chest CTA B/L bandage dry Ht RRR CXR tiny PTX resolved Plan: ok d/c with home PT, oxygen Face to face done for oxygen, pt desats to less than 86% on room air. 08/08/16 13:17 08/11/16 10:18 Objective: Vital Signs Temp Pulse Resp BP Pulse Ox 36.7 C 66 14 143/73 H 91 L 08/11/16 07:51 08/11/16 08:20 08/11/16 07:51 08/11/16 08:21 08/11/16 07:51 Laboratory Results 08/09/16 06:20 08/09/16 06:20 08/10/16 08/11/16 08/12/16 05:59 05:59 05:59 Intake Total 100 Output Total 250 Balance -150 ICD10 Worksheet Patient Problems: Problems Problem Status Onset Lung cancer, lingula Acute
== END 2016-08-11 14:25 | disposition home or self-care (01) | DRG 164 ==
LOC: INTOOBSV 06:12 → F3E 06:12 → F2W 08:03 → OBSVTOIN 08-06 13:46 → F2N 08-07 14:40 → F3E 08-08 13:43
PROVIDERS: ADMIT Surgery; ATTEND Surgery
PROC: 0BBG4ZZ Excision of Left Upper Lung Lobe, Percutaneous Endoscopic Approach (ICD-10-PCS; principal; 2016-08-07 09:30)
DX: C34.12 Malignant neoplasm of upper lobe, left bronchus or lung (principal); I45.2 Bifascicular block; I10 Essential (primary) hypertension; E87.1 Hypo-osmolality and hyponatremia; E78.5 Hyperlipidemia, unspecified; G62.9 Polyneuropathy, unspecified; H91.93 Unspecified hearing loss, bilateral; H35.30 Unspecified macular degeneration; J32.9 Chronic sinusitis, unspecified; F10.21 Alcohol dependence, in remission; Z90.2 Acquired absence of lung [part of]; Z87.891 Personal history of nicotine dependence; Z85.118 Personal history of other malignant neoplasm of bronchus and lung
CPT/HCPCS: 97110-GP; 97116-GP; 97161-GP; 97165-GO; 97530-GO; 97530-GP; A9500; G0378; G8978-GP-CJ; G8979-GP-CI; G8987-GO-CL; G8988-GO-CJ; J0360; J0690; J0694; J0697; J1100; J1885; J2250; J2370; J2405; J2704; J2785; J3010

== ENCOUNTER → 2016-08-20 | Outpatient (CLI) | payer OTHER | LOC: FIMAGING 12:07 | PROVIDERS: ATTEND Physician Assistant Surgical | DX: Z98.890 Other specified postprocedural states (principal); Z85.118 Personal history of other malignant neoplasm of bronchus and lung ==

== ENCOUNTER → 2017-02-23 | Outpatient (CLI) | payer OTHER ==
[~2017-02-23] MED LIST changes: +IOPAMIDOL (ISOVUE-300) 100 ML BTL ONE; -ceFAZolin 2 GM/DEXTROSE 100 ML IV ONE
== END ==
LOC: FIMAGING 14:36
PROVIDERS: ATTEND Internal Medicine Hematology & Oncology
DX: R91.1 Solitary pulmonary nodule (principal); J98.9 Respiratory disorder, unspecified; D18.09 Hemangioma of other sites; N28.1 Cyst of kidney, acquired; N26.1 Atrophy of kidney (terminal); D35.00 Benign neoplasm of unspecified adrenal gland; Z85.118 Personal history of other malignant neoplasm of bronchus and lung
CPT/HCPCS: 71260; Q9967

== ENCOUNTER → 2017-08-24 | Outpatient (CLI) | payer OTHER | LOC: FIMAGING 10:30 | PROVIDERS: ATTEND Internal Medicine Hematology & Oncology | DX: Z08 Encounter for follow-up examination after completed treatment for malignant neoplasm (principal); Z85.118 Personal history of other malignant neoplasm of bronchus and lung; J43.9 Emphysema, unspecified; D18.09 Hemangioma of other sites; K44.9 Diaphragmatic hernia without obstruction or gangrene; Z87.891 Personal history of nicotine dependence ==

== ENCOUNTER → 2018-01-27 | Outpatient (CLI) | payer OTHER | LOC: BHFA 15:00 | PROVIDERS: ATTEND Internal Medicine Cardiovascular Disease | DX: I45.3 Trifascicular block (principal); I25.10 Atherosclerotic heart disease of native coronary artery without angina pectoris; I10 Essential (primary) hypertension; R06.09 Other forms of dyspnea; E78.5 Hyperlipidemia, unspecified ==

== ENCOUNTER → 2018-03-07 | Outpatient (CLI) | payer OTHER | LOC: FIMAGING 10:51 | PROVIDERS: ATTEND Internal Medicine Hematology & Oncology | DX: Z08 Encounter for follow-up examination after completed treatment for malignant neoplasm (principal); D18.09 Hemangioma of other sites; I25.10 Atherosclerotic heart disease of native coronary artery without angina pectoris; Z85.118 Personal history of other malignant neoplasm of bronchus and lung ==

== ENCOUNTER → 2018-09-01 | Outpatient (CLI) | payer OTHER | LOC: FIMAGING 15:08 | PROVIDERS: ATTEND Internal Medicine Hematology & Oncology | DX: J43.2 Centrilobular emphysema (principal); I25.10 Atherosclerotic heart disease of native coronary artery without angina pectoris; C34.11 Malignant neoplasm of upper lobe, right bronchus or lung; C34.12 Malignant neoplasm of upper lobe, left bronchus or lung ==

== ENCOUNTER 2018-10-19 15:32 | Emergency (ER) | payer OTHER ==
--- NOTE | 2018-10-19 15:52 | EDPHY ---
H & P Stated Complaint: c/o large amt of swelling to back of R hand after hitting hand on doorframe Time Seen by Provider: 10/19/18 15:51 HPI/ROS: CHIEF COMPLAINT: Right hand hematoma HISTORY OF PRESENT ILLNESS: The patient presents the ED for evaluation of pain and swelling to the dorsum of his right hand after he accidentally struck it on a doorjamb. The patient is anticoagulated. He denies any additional injury. He denies any additional complaints. He has mild pain with palpation and movement. REVIEW OF SYSTEMS: A comprehensive 10 point review of systems is otherwise negative aside from elements mentioned in the history of present illness. 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 tonsillectomy and adenoidectomy - Social History Smoking Status: Former smoker - Physical Exam Exam: General Appearance: Alert, no distress Skin: Small hematoma noted to the dorsum of the right hand Extremities: Tenderness to the dorsum of the right hand with associated hematoma Neurological: Intact motor sensory exam noted to the right upper extremity Constitutional: Initial Vital Signs Temperature (C) 36.6 C 10/19/18 15:46 Heart Rate 77 10/19/18 15:46 Respiratory Rate 18 10/19/18 15:46 Blood Pressure 163/86 H 10/19/18 15:46 O2 Sat (%) 88 L 10/19/18 15:46 O2 Delivery Mode Room Air Allergies/Adverse Reactions: No Known Allergies Allergy (Verified 10/19/18 15:49) Home Medications: Medication Instructions Recorded Atenolol/Chlorthalidone 1 each PO DAILY 08/01/16 [Atenolol-Chlorthalidone 50-25] Losartan Potassium [Cozaar] 100 mg PO DAILY 08/01/16 C/E/Zn/Cu/OM3/DHA/EPA/LUT/ZEAX 1 each PO DAILY #0 cap 08/11/16 [Preservision Areds 2 Softgel] Carvedilol [Coreg (*)] 12.5 mg PO BIDMEAL #0 tab 08/11/16 Chlorthalidone [Chlorthalidone 25 25 mg PO DAILY #0 tab 08/11/16 mg (*)] Hydrocodone/APAP 5/325 [[place] 2 tab PO Q4HRS PRN #30 tab 08/11/16 5/325 (*)] Losartan Potassium [Cozaar 50 mg 100 mg PO DAILY #0 tab 08/11/16 (*)] Sennosides/Docusate Sodium 1 - 2 tab PO BID #0 tab 08/11/16 [Senokot-S] amLODIPine BESYLATE [Norvasc 2.5 2.5 mg PO DAILY #0 tab 08/11/16 mg (*)] hydrALAZINE [Apresoline 20 MG VIAL] 20 mg IVP Q6HRS PRN #0 vial 08/11/16 Medical Decision Making - Diagnostics Imaging Results: Imaging Impressions Hand X-Ray 10/19/18 15:52 Impression: Significant soft tissue swelling over the dorsum of the hand, without underlying bony abnormalities. Right hand x-ray: Images reviewed by myself. Impression negative for acute fracture ED Course/Re-evaluation: Patient presents the ED with a small hematoma to the dorsum of the right hand without evidence of a fracture. Patient will be discharged home with customary hematoma aftercare instructions and return precautions. Differential Diagnosis: Differential diagnosis considered includes hematoma, fracture, dislocation Departure - Departure Disposition: Home, Routine, Self-Care Clinical Impression: Traumatic hematoma of right hand Condition: Good Instructions: Hematoma (ED) Additional Instructions: 1. Please ice area of pain and swelling 20-30 minutes at a time 4 to 5 times a day for the next several days. 2. Your x-ray demonstrates no evidence of an obvious fracture. 3. Please follow-up with your regular physicians as scheduled.
[2018-10-19 17:04] VITALS: BP 141/76
== END 2018-10-19 17:08 | disposition home or self-care (01) ==
DX: S60.221A Contusion of right hand, initial encounter (principal); I10 Essential (primary) hypertension; E78.5 Hyperlipidemia, unspecified; I25.10 Atherosclerotic heart disease of native coronary artery without angina pectoris; W23.1XXA Caught, crushed, jammed, or pinched between stationary objects, initial encounter; Z79.01 Long term (current) use of anticoagulants